=== PATIENT | female | born 1985 ===

== ENCOUNTER 2017-09-12 06:42 | Inpatient (IN) | payer MEDICAID ==
[2017-09-12 07:02] VITALS: BMI 27.8
--- NOTE | 2017-09-12 07:22 | OBADHP ---
Datetime: 09/12/2017 07:08 Admit Comment, IP Provider: 40 yo female with Hx of 2 previous C/S's Admitted for a schedule repeat C/S with BTL care records reviewed and GBS negative. Procedure, risks and possible complications fully reviewed with the patient and FOB and they both verbalized understanding and request to proceed. Consent signed Pelvic Type - PN: Adequate Extremities - PN: Normal Abdomen - PN: Normal Back - PN: Normal Breast - PN: Not Done Lungs - PN: Normal Heart - PN: Normal Thyroid - PN: Normal Neurologic - PN: Normal HEENT - PN: Normal General - PN: Normal FHR - Baseline A Provider: 130 Membranes, Provider: Intact Gestation - Est Wks by US: 39 weeks Vital Signs Provider: Reviewed IP Chief Complaint: Uterine contractions; Scheduled Section NICHD Variability Prov Fetus A: Moderate 6-25bpm NICHD Accel Fetus A IP Provider: [id number] FHR Category Provider Fetus A: Category I NICHD Decel Fetus A IP Provider: None Genitourinary Exam: Normal DTRs - PN: Normal EGA AdmitDate IP: 39.0 IP Adm Impression: Term, intrauterine IP Admit Plan: Admit to unit; Initiate Section protocol
[2017-09-12] MEDS ORDERED: Sodium Citrate/Citric Acid 15 ml Sol PO ONE (07:25)
[2017-09-12] MEDS ORDERED: Lactated Ringer's 1,000 ML IV ONE ×2 (07:25→08:45)
[2017-09-12] MEDS ORDERED: cefOXitin IV 2 gm in Dextrose 2 GM/50 ML BAG IVPB ONE (07:25)
[2017-09-12] MEDS ORDERED: Morphine 1 mg/ml preservative-free Inj(Duramorph) ONE (08:13)
[2017-09-12] MEDS ORDERED: Phenylephrine 10 mg/ml Inj ONE (08:13)
[2017-09-12] MEDS ORDERED: Oxytocin 20 units in LR 2,000 ML IV ONE (08:22)
[2017-09-12] MEDS ORDERED: cefOXitin IV 2 gm in Saline 2 GM/50 ML BAG IVPB ONE (08:23)
[2017-09-12] MEDS ORDERED: Sodium Citrate/Citric Acid 15 ml Sol ONE (08:23)
[2017-09-12 08:26] LABS: BASO % 0.3 % (0.0-2.0); EOS # 0.1 K/uL (0.0-0.7); EOS % 1.3 % (0.0-4.0); HEMOGLOBIN 13.9 g/dL (11.0-16.0); LYMPH # 1.7 K/uL (1.0-4.3); LYMPH % 23.6 % (20.0-40.0); MEAN CELL VOLUME 90.3 fL (81.0-99.0); MEAN CORPUSCULAR HEMOGLOBIN 30.6 pg (27.0-31.0); MEAN CORPUSCULAR HGB CONC 33.9 g/dL (33.0-37.0); MEAN PLATELET VOLUME 9.7 fL (7.2-11.7); MONO # 0.6 K/uL (0.0-0.8); NEUT # 4.9 K/uL (1.8-7.0); NEUT % 66.8 % (50.0-75.0); NRBC % 0.1 % (0.0-2.0); RBC 4.55 Mil/uL (3.80-5.20); RED CELL DISTRIBUTION WIDTH 13.9 % (11.5-14.5); WHITE BLOOD COUNT 7.3 K/uL (4.8-10.8)
[2017-09-12 08:34] LABS: SQUAMOUS EPITHIAL 6 /hpf (0-5); URINE BACTERIA RARE (<OCC); URINE BILIRUBIN NEGATIVE (NEGATIVE); URINE BLOOD 2+ (NEGATIVE); URINE CLARITY Hazy (Clear); URINE COLOR Yellow (YELLOW); URINE GLUCOSE (UA) NORMAL (Normal); URINE LEUKOCYTE ESTERASE 1+ Leu/uL (Negative); URINE PROTEIN NEGATIVE (NEGATIVE); URINE UROBILINOGEN NORMAL mg/dL (0.2-1.0)
[2017-09-12] MEDS ORDERED: Lactated Ringer's 1,000 ML IV SCH ×2 (09:36→09:46)
--- NOTE | 2017-09-12 12:01 | OBDS ---
DELIVERY PERSONNEL Delivery Doctor: Cameron Walters Nurse: Mary Wilks Inspector Tool: Jesi Padgett RN Anesthesiologist: jon MATERNAL INFORMATION Delivery Anesthesia: Spinal Medications in Delivery: pitocin 20 Estimated Blood Loss (ml): 1000 ml Placenta Cultured: No Maternal Complications: None Provider Comments: Repeat LTC C/S with a vertical skin incision and excision of old scar Bilateral Tubal Ligation with Enseal Delivery of a viable male with Apgars 9_9 and BW of 7lbs and 5 oz. Pt and both tolerated the procedure well and left the OR in S_S condition. LABOR SUMMARY EDC: 09/19/2017 00:00 No. Babies in Womb: 1 Attempted: No Labor Anesthesia: None LABOR INFORMATION Reason for Induction: Not Applicable Oxytocin: N/A Antibiotics # of Doses: 1 Antibiotics Time of Last Dose: 8;26 Steroids Given: None Reason Steroids Not Administered: Not Applicable MEMBRANES Membranes Rupture Method: Artificial Rupture of Membranes: 09/12/2017 09:45 Length of Rupture (hrs): 0.02 Amniotic Fluid Color: Clear Amniotic Fluid Amount: Moderate Amniotic Fluid Odor: Normal STAGES OF LABOR Stage 3 hrs: 0 Stage 3 min: 2 VAGINAL DELIVERY Episiotomy: None Laceration Extension: N/A Laceration Type: None CSECTION DELIVERY Primary Indication: Repeat Elective Other Primary Indication: Mulriparity requesting permanent sterilization Secondary Indication: N/A CSection Urgency: Elective CSection Incidence: Repeat Labor: No Labor Elective: Elective CSection Incision: Lower Vertical Other Sterilization Procedure: with Enseal BABY A INFORMATION Infant Delivery Date/Time: 09/12/2017 09:46 Method of Delivery: Born in Route : No : N/A Forceps: N/A Vacuum Extraction: N/A Shoulder Dystocia : No SHOULDER DYSTOCIA BABY A Delivery Date/Time: 09/12/2017 09:46 PRESENTATION/POSITION BABY A Presentation: Cephalic Cephalic Presentation: Vertex Vertex Position: Right Occipital Anterior Breech Presentation: N/A PLACENTA INFORMATION BABY A Placenta Delivery Time : 09/12/2017 09:48 Placenta Method of Delivery: Expressed Placenta Status: Delivered SCORES BABY A Heart Rate 1 min: >100 bpm Resp Effort 1 min: Good Cry Reflex Irritability 1 min: Cough or Sneeze or Pulls Away Muscle Tone 1 min: Active Motion Color 1 min: Body [place], Extremities Blue Resuscitation Effort 1 min: Tactile Stimulation SCORE 1 MIN: 9 Heart Rate 5 min: >100 bpm Resp Effort 5 min: Good Cry Reflex Irritability 5 min: Cough or Sneeze or Pulls Away Muscle Tone 5 min: Active Motion Color 5 min: Body [place], Extremities Blue SCORE 5 MIN: 9 INFANT INFORMATION BABY A Gestational Age at Delivery: 39.0 Gestational Status: Term Infant Outcome : Liveborn Condition : Stable Sex: Male IDENTIFICATION/MEDS BABY A ID Band Number: [id number] ID Band Location: Left Leg; Left Arm Sensor Applied: Yes Sensor Number: [id number] Sensor Location : Cord Clamp Vitamin K Given : Aquamephyton 1 mg IM Erythromycin Given: Given Both Eyes WEIGHT/LENGTH BABY A Infant Birthweight (gms): 3310 Infant Weight (lb): 7 Infant Weight (oz): 5 Length Inches: 19.00 Infant Length cms: 48.3 CORD INFORMATION BABY A No. Cord Vessels: 3 Nuchal Cord : N/A Cord Blood Taken: Yes Infant Suction: Mouth; Nose ASSESSMENT BABY A Infant Complications: None Physical Findings at Delivery: Within Normal Limits Infant Respirations: Appears Normal Nuisance Wildlife Trapper/ALS Called : No Infant Care By: tera Transferred To: Remains with Mother
[2017-09-12 12:47] LABS: SQUAMOUS EPITHIAL < 1 /hpf (0-5); URINE BILIRUBIN NEGATIVE (NEGATIVE); URINE BLOOD NEGATIVE (NEGATIVE); URINE CLARITY Clear (Clear); URINE COLOR Yellow (YELLOW); URINE GLUCOSE (UA) NORMAL (Normal); URINE LEUKOCYTE ESTERASE NEG Leu/uL (Negative); URINE PROTEIN NEGATIVE (NEGATIVE); URINE UROBILINOGEN NORMAL mg/dL (0.2-1.0)
[2017-09-12] MEDS: Oxycodone/Acetaminophen 5/325 mg Tab PO PRN (22:08)
[2017-09-13] MEDS: Oxycodone/Acetaminophen 5/325 mg Tab PO PRN ×3 (05:33→23:34)
[2017-09-13 07:49] LABS: MEAN CELL VOLUME 89.1 fL (81.0-99.0); MEAN CORPUSCULAR HGB CONC 34.8 g/dL (33.0-37.0); MEAN PLATELET VOLUME 9.4 fL (7.2-11.7); RBC 3.17 Mil/uL (3.80-5.20); RED CELL DISTRIBUTION WIDTH 13.8 % (11.5-14.5); WHITE BLOOD COUNT 10.9 K/uL (4.8-10.8)
[2017-09-13 07:51] LABS: HEMOGLOBIN 9.8 g/dL (11.0-16.0)
--- NOTE | 2017-09-13 09:05 | OBPPN ---
Datetime: 09/13/2017 08:41 PP Pain Prov: Within normal limits PP Nausea Prov: Denies PP Flatus Prov: No PP Abdomen/Uterus Prov: Normal PP Extremities Prov: Normal PP Comments Phys Exam Prov: dressing clean and dry abd soft,non PP Impression Prov: Normal progression PP Plan Prov: Continue present management PP Progress Note Prov: pt was seen at bed roxanna, pain under control,no n/v, min lochia, flatus_ pod#1 s/p c/s reg deit cont pain ma cont post op care enurage am
[2017-09-13] MEDS: Prenatal Multivit/Folic Acid/Iron Tab PO SCH (10:29)
[2017-09-14] MEDS: Prenatal Multivit/Folic Acid/Iron Tab PO SCH (09:53)
--- NOTE | 2017-09-14 12:18 | OBPPN ---
Datetime: 09/14/2017 12:06 PP Pain Prov: Within normal limits PP Nausea Prov: Denies PP Flatus Prov: Yes PP BM Prov: No PP Breasts Prov: Normal PP Heart Prov: Normal PP Lungs Prov: Normal PP Abdomen/Uterus Prov: Normal PP Extremities Prov: Normal PP Progress Prov: Normal PP Comments Phys Exam Prov: Verical Incision covered w/ dressing fundus firm, @umbilicus PP Impression Prov: Normal progression PP Plan Prov: Continue present management PP Progress Note Prov: s: no c/o. pain well controlled w/ motrin i: pod2 CD doing well p: routine pp care RX S[place] S Rx FESO4 ON D/C HOME. pt advised about need for FE supplem IP PP Procedures: None Vital Signs Provider PP: Within Normal Limits
[2017-09-14] MEDS ORDERED: Docusate-Senna 50 mg-8.6 mg Tab PO SCH (18:00)
[2017-09-15 00:18] VITALS: O2SAT 98
[2017-09-15 08:42] VITALS: BP 116/73; PULSE 79; RESP 18; TEMP 97.9
[2017-09-15] MEDS: Prenatal Multivit/Folic Acid/Iron Tab PO SCH (09:39)
[2017-09-15] MEDS ORDERED: Magnesium Citrate Oral SOL (300 ml) PO ONE (14:56)
--- NOTE | 2017-09-15 18:02 | OBDCSUM ---
Datetime: 09/15/2017 13:13 Discharged to, Provider: Home Follow up at, Provider: [facility] Disch Instr Activity: May be up to bathroom; May be up for meals; May Shower Disch Instr Diet: Regular Discharge Diet restrict Prov: none Discharge Instructions, Provider: Routine instructions given Discharge Diagnosis, Provider: Term Delivered Discharge Time: 09/15/2017 15:00 Follow up in weeks, Provider: 09/22/17 Disch Referrals: None Disch Activity Restrictions: No exercising; No lifting; No sexual activity; Nothing in vagina - Inte rcourse, tampons, douche Discharge Comment, Provider: POD # 3 Recovered Satisfactorily + flatus and only small BM Incision Clean, Dry and Intact satisfactorily Will follow up in the 'clinic in 7-10 days for staple removal Discharged home in Stable and Satisfactory condition Discharge Diagnosis Prov Other: MULTIPARITY AND HAD PERMANENT STERILIZATION Contraception after Delivery: Tubal Ligation
== END 2017-09-15 16:15 | disposition home or self-care (01) | DRG 371 ==
LOC: C.4D 06:42 → C.4M 14:28
PROVIDERS: ADMIT Obstetrics & Gynecology; ATTEND Obstetrics & Gynecology
PROC: 10D00Z1 Extraction of Products of Conception, Low, Open Approach (ICD-10-PCS; principal; 2017-09-12)
PROC: 0UT70ZZ Resection of Bilateral Fallopian Tubes, Open Approach (ICD-10-PCS; 2017-09-12)
PROC: 0HB7XZZ Excision of Abdomen Skin, External Approach (ICD-10-PCS; 2017-09-12)
DX: O34.211 Maternal care for low transverse scar from previous cesarean delivery (principal); N85.8 Other specified noninflammatory disorders of uterus; Z30.2 Encounter for sterilization; Z3A.39 39 weeks gestation of pregnancy; Z37.0 Single live birth